=== PATIENT | female | born 1995 | race American Indian/Alaskan Native ===

== ENCOUNTER 2018-08-06 23:54 | Emergency (ER) | payer MEDICAID, OTHER ==
[2018-08-07 00:28] VITALS: BP 115/76
--- NOTE | 2018-08-07 01:24 | XRay Report ---
PROCEDURE: XR WRIST 2V LT TECHNIQUE: LEFT wrist radiographs, AP and lateral views. HISTORY: Left wrist swelling and pain COMPARISONS: None . FINDINGS: Fracture (s) and/or Dislocation(s): None . Alignment: Normal . Joint space(s): Normal . Soft tissues: Normal . Bone mineralization: Normal . Foreign bodies: None . IMPRESSION: Normal Examination . This document is electronically signed by Chelita Zapien DO., August 07 2018 01:22:17 AM ET
--- NOTE | 2018-08-07 05:33 | Emergency Department Report ---
ED Upper Extremity Inj HPI - General Chief Complaint: Extremity Injury, Upper Stated Complaint: LEFT WRIST INJURY Source: patient Mode of arrival: Ambulatory Limitations: No Limitations - History of Present Illness Initial Comments: Patient is a 23-year-old -[place] female presents with respiratory status post ground-level fall 3 days ago there is no laceration no bleeding no abrasion there is no deformity no weakness, tingling ,or paralysis. Pain is 5/10 exacerbated by movement pain is relieved by rest MD Complaint: Injury to:: left, wrist Onset/Timin -: days(s) Other Extremity Injury: Wrist: Left Other Injuries: none Place: home Severity scale (0 -10): 4 Improves With: none Worsens With: movement of extremity Associated Symptoms: suspects foreign body. denies: denies other symptoms, weakness, numbness, neck pain - Related Data Previous Rx's Medication Instructions Recorded Last Taken Type Cyclobenzaprine [Flexeril] 10 mg PO TID PRN #30 tablet 08/07/18 Unknown Rx Naproxen 500 mg PO BID #30 tablet 08/07/18 Unknown Rx Allergies Allergy/AdvReac Type Severity Reaction Status Date / Time No Known Allergies Allergy Unverified 08/07/18 00:49 ED Review of Systems ROS: Stated complaint: LEFT WRIST INJURY Other details as noted in HPI Constitutional: denies: chills, fever Eyes: denies: eye pain, eye discharge, vision change ENT: denies: ear pain, throat pain Respiratory: denies: cough, shortness of breath, wheezing Cardiovascular: denies: chest pain, palpitations Endocrine: no symptoms reported Gastrointestinal: denies: abdominal pain, nausea, diarrhea Genitourinary: denies: urgency, dysuria, discharge Musculoskeletal: joint swelling (left joint wiht mild swelling , rom intact, no tr will be l). denies: back pain, arthralgia Skin: denies: rash, lesions Neurological: denies: headache, weakness, paresthesias Psychiatric: denies: anxiety, depression Hematological/Lymphatic: denies: easy bleeding, easy bruising ED Past Medical Hx - Past Medical History Previous Medical History?: No - Surgical History Past Surgical History?: Yes Additional Surgical History: Csection November 2017 - Social History Smoking Status: Never Smoker - Medications Home Medications: Home Medications Medication Instructions Recorded Confirmed Last Taken Type Cyclobenzaprine [Flexeril] 10 mg PO TID PRN #30 tablet 08/07/18 Unknown Rx Naproxen 500 mg PO BID #30 tablet 08/07/18 Unknown Rx ED Physical Exam - General Limitations: No Limitations General appearance: alert, in no apparent distress - Head Head exam: Present: atraumatic, normocephalic - Eye Eye exam: Present: normal appearance, PERRL, EOMI Pupils: Present: normal accommodation - ENT ENT exam: Present: mucous membranes moist. Absent: normal orophraynx, TM's normal bilaterally, normal external ear exam - Neck Neck exam: Present: normal inspection, full ROM, lymphadenopathy. Absent: tenderness, meningismus, thyromegaly - Cardiovascular Cardiovascular Exam: Present: regular rate, normal rhythm, normal heart sounds. Absent: systolic murmur, diastolic murmur, rubs, gallop - GI/Abdominal GI/Abdominal exam: Present: soft, normal bowel sounds. Absent: guarding, rebound - Rectal Rectal exam: Present: deferred - Extremities Exam Extremities exam: Present: full ROM, tenderness (left dorsal wrist ), normal capillary refill, joint swelling. Absent: pedal edema, calf tenderness - Expanded Upper Extremity Exam Right Hand Wrist exam: Present: full ROM, tenderness, swelling, laceration. Absent: abrasion, ecchymosis, deformity, crepidus, dislocation, erythema, amputation, nail avulsion, subungual hematoma Neuro motor exam: Present: wrist extension intact, thumb opposition intact, thumb IP flexion intact, thumb adduction intact, fingers 2-5 abduction intact Neurosensory exam: Present: 2-point discrimination, radial nerve intact Vascular: Present: normal capillary refill, radial pulse, brachial pulse, ulnar pulse. Absent: vascular compromise, pulse deficit radial art, pulse deficit ulnar art, pulse deficit brachial art - Back Exam Back exam: Present: normal inspection. Absent: full ROM, CVA tenderness (R), CVA tenderness (L) - Neurological Exam Neurological exam: Present: alert, oriented X3, CN II-XII intact, abnormal gait. Absent: motor sensory deficit - Psychiatric Psychiatric exam: Present: normal mood - Skin Skin exam: Present: warm, dry, intact, normal color, abrasion (left posterior wrist). Absent: rash ED Course Vital Signs 08/07/18 08/07/18 00:09 00:49 Temperature 98.0 F 98.0 F Pulse Rate 73 70 Respiratory 16 20 Rate Blood Pressure 115/76 115/76 O2 Sat by Pulse 100 100 Oximetry ED Medical Decision Making - Radiology Data Radiology results: pending interpreted by me: Referring Physician: TERESA WOOD Patient Name: DANG GUALLPA Date of : 1995 Sex: Female Report Date: 2018-08-07 Report Status: Finalized Findings [address] [address] XRay Report Signed Patient: DANG GUALLPA MR#: [id number] : 1995 Acct:[id number] Age/Sex: 23 / F ADM Date: 08/06/18 Loc: ED Attending Dr: Ordering Physician: TERESA WOOD NP Date of Service: 08/07/18 Procedure(s): XR wrist 2V LT Accession Number(s): [id number] cc: TERESA WOOD NP Fluoro Time In Minutes: PROCEDURE: XR WRIST 2V LT TECHNIQUE: LEFT wrist radiographs, AP and lateral views. HISTORY: Left wrist swelling and pain COMPARISONS: None . FINDINGS: Fracture (s) and/or Dislocation(s): None . Alignment: Normal . Joint space(s): Normal . Soft tissues: Normal . Bone mineralization: Normal . Foreign bodies: None . IMPRESSION: Normal Examination . This document is electronically signed by Syeda Rogers DO., August 07 2018 01:22:17 AM ET Transcribed By: [facility] Dictated By: SYEDA ROGERS MD Electronically Authenticated By: SYEDA ROGERS MD Signed Date/Time: 08/07/18123 DD/ 3 TD/TT: 08/07/18113 - Medical Decision Making Referring Physician: TERESA WOOD Patient Name: DANG GUALLPA Date of : 1995 Sex: Female Report Date: 2018-08-07 Report Status: Finalized Findings [address] [address] XRay Report Signed Patient: DANG GUALLPA MR#: [id number] : 1995 Acct:[id number] Age/Sex: 23 / F ADM Date: 08/06/18 Loc: ED Attending Dr: Ordering Physician: TERESA WOOD NP Date of Service: 08/07/18 Procedure(s): XR wrist 2V LT Accession Number(s): [id number] cc: TERESA WOOD NP Fluoro Time In Minutes: PROCEDURE: XR WRIST 2V LT TECHNIQUE: LEFT wrist radiographs, AP and lateral views. HISTORY: Left wrist swelling and pain COMPARISONS: None . FINDINGS: Fracture (s) and/or Dislocation(s): None . Alignment: Normal . Joint space(s): Normal . Soft tissues: Normal . Bone mineralization: Normal . Foreign bodies: None . IMPRESSION: Normal Examination . This document is electronically signed by Syeda Rogers DO., August 07 2018 01:22:17 AM ET Transcribed By: [facility] Dictated By: SYEDA ROGERS MD Electronically Authenticated By: SYEDA ROGERS MD Signed Date/Time: 08/07/18123 DD/ 3 TD/TT: 08/07/18113 Critical care attestation.: If time is entered above; I have spent that time in minutes in the direct care of this critically ill patient, excluding procedure time. ED Disposition Clinical Impression: Left wrist sprain Qualifiers: Encounter type: initial encounter Qualified Code(s): S63.502A - Unspecified sprain of left wrist, initial encounter Disposition: DC-01 TO HOME OR SELFCARE Is pt being admited?: No Does the pt Need Aspirin: No (ccccccccccccccccccccccccccccccccccccccccccccccccccccccccccccccccccccccccccccccc cccccccccccccccccccccccccccccccccccccccccccccccccccccccccccccccccccccccccccccccc ccccccccccccccccccccccccccccc cccccccccccccccccccccccccccccccccccccccccccccccccccccccccccccccccccccccccccccccc cccccccccccccccccccccccccccccccccccccccccccccccccccccccccccccccccccccccccccccccc cccccccccccccccccccccccccccccccccccccccc cccccccccccccccccccccccccccccccccccccccccccccccccccccccccccccccccccccccccccccccc ccccccccccccccccccccccccccccccccccccccccccccccccccccccccccccccccccccccccccccc) Condition: Stable Instructions: Wrist Sprain (ED) Prescriptions: Cyclobenzaprine [Flexeril] 10 mg PO TID PRN #30 tablet PRN Reason: Muscle Spasm Naproxen 500 mg PO BID #30 tablet Referrals: [facility] [Outside] - 3-5 Days Forms: Work/School Release Form(ED) Time of Disposition: 05:45
== END 2018-08-07 05:54 | disposition home or self-care (01) ==
LOC: ED 23:54
DX: S63.502A Unspecified sprain of left wrist, initial encounter (principal); Z98.890 Other specified postprocedural states; W19.XXXA Unspecified fall, initial encounter; Y93.89 Activity, other specified; Y92.009 Unspecified place in unspecified non-institutional (private) residence as the place of occurrence of the external cause; Y99.8 Other external cause status